=== PATIENT | female | born 1945 | race Caucasian/White ===

== ENCOUNTER 2018-05-16 20:49 | Observation (INO) ==
[2018-05-16] MEDS ORDERED: ONDANSETRON 4 MG/2 ML VIAL IV STA (22:18)
[2018-05-16] MEDS ORDERED: METOPROLOL TARTRATE 5 MG/5 ML VIAL IV STA (22:18)
[2018-05-16 22:44] LABS: Basophils % 0.3 % (0.0-0.8); Eosinophils # 0.2 10*3/uL (0.0-0.87); Eosinophils % 2.1 % (0.00-10.9); Hematocrit 44.1 VOL% (35.7-47.0); Hemoglobin 14.7 GM/DL (12.0-16.0); Immature Granulocytes % 0.4 %; Immature Granulocytes Absolute 0.04 #; Lymphocytes # 1.9 10*3/uL (1.4-4.0); Lymphocytes % 21.8 % (21.3-54.2); Mean Corpuscular HGB Conc 33.3 GM/DL (32-36); Mean Corpuscular Hemoglobin 31 PG (27-34); Mean Corpuscular Volume 92.3 FL (87-102); Mean Platelet Volume 10.4 FL (9.6-12.0); Monocytes # 0.7 10*3/uL (0.11-0.8); Monocytes % 7.9 % (1.7-12.7); Neutrophils % 67.5 % (38.7-73.9); Platelet Count 184 T/CUMM (130-400); Red Blood Count 4.78 MC/CUMM (3.8-5.5); Red Cell Distribution Width 13.6 % (9.3-17.3); White Blood Count 8.9 T/CUMM (4-12)
[2018-05-16 23:07] LABS: Alanine Aminotransferase 55 U/L (13-56); Albumin 3.3 G/DL (3.4-5.0); Alkaline Phosphatase 105 U/L (45-117); Aspartate Amino Transferase 42 U/L (0-37); Blood Urea Nitrogen 29 MG/DL (7-18); Calcium 8.9 MG/DL (8.5-10.1); Glucose 98 MG/DL (74-106); Osmolality,Calculated 286.3 MOS/KG (273-304); Potassium 3.9 MMOL/L (3.5-5.1); Sodium 141 MMOL/L (136-145); Total Protein 7.4 G/DL (6.4-8.3)
[2018-05-17 01:09] LABS: Apearance,Urine CLEAR (Clear); Bilirubin,Urine Negative (Negative); Blood, Urine Negative (Negative); Glucose,Urine (UA) Negative (Negative); Ketones,Urine Negative (Negative); Nitrite,Urine Negative (Negative); Protein,Urine 100 MG/DL; RBC,Urine <1 /HPF (0-4); Urine Color Yellow (Yellow); Urine Urobilinogen < 2.0 EU/DL (0.2-1.0); WBC,Urine 1 /HPF (0-6)
[2018-05-17 01:19] LABS: Barbiturates Screen,Urine Negative (Negative); Benzodiazepines Screen,Urine Negative (Negative); Cannabinoid Screen,Urine Negative (Negative); Opiate Screen,Urine Negative (Negative); Phencyclidine Screen,Urine Negative (Negative)
[2018-05-17] MEDS ORDERED: ACETAMINOPHEN 325 MG TABLET PO PRN (05:09)
[2018-05-17] MEDS ORDERED: hydrALAZINE 25 MG TABLET PO PRN (05:09)
[2018-05-17] MEDS ORDERED: LEVOTHYROXINE 100 MCG TABLET PO SCH (06:00)
[2018-05-17 06:03] LABS: Basophils % 0.4 % (0.0-0.8); Eosinophils # 0.2 10*3/uL (0.0-0.87); Eosinophils % 2.3 % (0.00-10.9); Hematocrit 41.6 VOL% (35.7-47.0); Immature Granulocytes % 0.4 %; Immature Granulocytes Absolute 0.03 #; Lymphocytes # 1.8 10*3/uL (1.4-4.0); Lymphocytes % 21.6 % (21.3-54.2); Mean Corpuscular HGB Conc 33.7 GM/DL (32-36); Mean Corpuscular Hemoglobin 31 PG (27-34); Mean Corpuscular Volume 91.6 FL (87-102); Mean Platelet Volume 10.6 FL (9.6-12.0); Monocytes # 0.6 10*3/uL (0.11-0.8); Monocytes % 7.9 % (1.7-12.7); Neutrophils # 5.5 10*3/uL (1.4-7.4); Neutrophils % 67.4 % (38.7-73.9); Platelet Count 165 T/CUMM (130-400); Red Blood Count 4.54 MC/CUMM (3.8-5.5); Red Cell Distribution Width 13.8 % (9.3-17.3); White Blood Count 8.1 T/CUMM (4-12)
[2018-05-17 06:08] LABS: INR 2.9
[2018-05-17 06:09] LABS: PT Patient Result 29.5 SECS
[2018-05-17 06:15] LABS: Calcium 8.6 MG/DL (8.5-10.1); Osmolality,Calculated 287.3 MOS/KG (273-304)
[2018-05-17] MEDS: AMYLASE PO SCH ×2 (08:49→11:48)
[2018-05-17] MEDS: PROTEASE PO SCH ×2 (08:49→11:48)
[2018-05-17] MEDS: LIPASE PO SCH ×2 (08:49→11:48)
[2018-05-17] MEDS ORDERED: FUROSEMIDE 40 MG TABLET PO SCH (09:00)
[2018-05-17] MEDS ORDERED: NEBIVOLOL 10 MG TABLET PO SCH (09:00)
[2018-05-17] MEDS ORDERED: ASPIRIN EC 81 MG TABLET PO SCH (09:00)
[2018-05-17] MEDS ORDERED: VALSARTAN 160 MG TABLET PO SCH (09:00)
[2018-05-17 12:33] VITALS: BP 178/67
[2018-05-17] MEDS ORDERED: WARFARIN 1 MG TABLET PO SCH (18:00)
== END 2018-05-17 16:44 | disposition home or self-care (01) ==
LOC: N.EDINP 20:49 → N.ED 20:49 → N.EDINP 05-17 04:35 → N.TELEN 05-17 05:01
PROVIDERS: ADMIT Internal Medicine Geriatric Medicine; ATTEND Internal Medicine Geriatric Medicine

== ENCOUNTER 2020-10-13 15:28 | Inpatient (IN) ==
[2020-10-13] MEDS ORDERED: LABETALOL 20 MG/4 ML SYRINGE IV ONE (15:46)
[2020-10-13] MEDS ORDERED: hydrALAZINE 20 MG/1 ML VIAL ONE (15:50)
[2020-10-13 16:11] LABS: Basophils % 0.4 % (0.0-0.8); Eosinophils # 0.1 10*3/uL (0.0-0.87); Hematocrit 41.5 VOL% (35.7-47.0); Hemoglobin 13.6 GM/DL (12.0-16.0); Immature Granulocytes % 0.6 %; Immature Granulocytes Absolute 0.05 #; Lymphocytes # 1.3 10*3/uL (1.4-4.0); Mean Corpuscular HGB Conc 32.8 GM/DL (32-36); Mean Corpuscular Volume 95.8 FL (87-102); Monocytes % 6.9 % (1.7-12.7); Neutrophils % 74.1 % (38.7-73.9); Platelet Count 78 T/CUMM (130-400); Red Blood Count 4.33 MC/CUMM (3.8-5.5); Red Cell Distribution Width 15.8 % (9.3-17.3); White Blood Count 7.8 T/CUMM (4-12)
[2020-10-13 16:23] LABS: Bilirubin,Urine Negative (Negative); Blood, Urine Negative (Negative); Glucose,Urine (UA) Negative (Negative); Hyaline Casts,Urine 1 /LPF (0-3); Ketones,Urine Negative (Negative); Mucus,Urine Occasional /LPF (Occasional); Nitrite,Urine Negative (Negative); Protein,Urine 30 MG/DL; RBC,Urine 1 /HPF (0-4); Squamous Epithelial Cell,Urine Occasional /HPF (0-10); Urine Appearance Slightly Hazy (Clear); Urine Color Straw (Yellow); Urine Specific Gravity 1.008 (1.001-1.035); Urine Urobilinogen < 2.0 EU/DL (0.2-1.0); WBC,Urine 1 /HPF (0-6)
[2020-10-13 16:35] LABS: INR 2.2; PT Patient Result 22.9 SECS (9.8-11.9); Partial Thromboplastin Time 42.2 SECS (23.9-33.8)
[2020-10-13 16:39] LABS: Alanine Aminotransferase 27 U/L (13-56); Albumin 3.5 G/DL (3.4-5.0); Alkaline Phosphatase 141 U/L (45-117); Aspartate Amino Transferase 23 U/L (0-37); Blood Urea Nitrogen 51 MG/DL (7-18); Calcium 8.4 MG/DL (8.5-10.1); Estimated Glom Filtration Rate 25 ML/MIN; Glucose 117 MG/DL (74-106); Osmolality,Calculated 297.1 MOS/KG (273-304); Total Protein 7.3 G/DL (6.4-8.3)
[2020-10-13 17:15] LABS: Barbiturates Screen,Urine Negative (Negative); Benzodiazepines Screen,Urine Negative (Negative); Cannabinoid Screen,Urine Negative (Negative); Opiate Screen,Urine Negative (Negative); Phencyclidine Screen,Urine Negative (Negative)
[2020-10-13] MEDS ORDERED: GLUCAGON 1 MG VIAL IM PRN (17:19)
[2020-10-13] MEDS ORDERED: DEXTROSE 50% 25 GM/50 ML VIAL IV PRN (17:19)
[2020-10-13] MEDS ORDERED: LABETALOL 20 MG/4 ML SYRINGE IV PRN (17:24)
[2020-10-13 17:57] LABS: Risk Ratio 4.23; VLDL CHOLESTEROL 42.4 MG/DL
[2020-10-13] MEDS ORDERED: cloNIDine 0.1 MG TABLET PO SCH (21:00)
[2020-10-13] MEDS: DOXAZOSIN 4 MG TABLET PO SCH (21:38)
[2020-10-13] MEDS: ATORVASTATIN 80 MG TABLET PO SCH (21:38)
[2020-10-13] MEDS: WARFARIN 3 MG TABLET PO SCH (21:38)
[2020-10-13] MEDS: NEBIVOLOL 10 MG TABLET PO SCH (21:43)
[2020-10-13] MEDS: ZONISAMIDE 100 MG CAPSULE PO SCH (21:43)
[2020-10-13] MEDS: SODIUM CHLORIDE 0.9% 1,000 ML IV SCH (23:19)
[2020-10-14 05:52] LABS: Basophils % 0.3 % (0.0-0.8); Eosinophils # 0.1 10*3/uL (0.0-0.87); Hematocrit 38.4 VOL% (35.7-47.0); Hemoglobin 12.4 GM/DL (12.0-16.0); Immature Granulocytes % 0.6 %; Immature Granulocytes Absolute 0.04 #; Lymphocytes # 1.2 10*3/uL (1.4-4.0); Lymphocytes % 18.5 % (21.3-54.2); Mean Corpuscular HGB Conc 32.3 GM/DL (32-36); Mean Corpuscular Volume 96.7 FL (87-102); Mean Platelet Volume 11.6 FL (9.6-12.0); Monocytes % 7.3 % (1.7-12.7); Neutrophils % 72.3 % (38.7-73.9); Platelet Count 93 T/CUMM (130-400); Red Blood Count 3.97 MC/CUMM (3.8-5.5); Red Cell Distribution Width 15.8 % (9.3-17.3); White Blood Count 6.7 T/CUMM (4-12)
[2020-10-14 05:55] LABS: INR 2.2; PT Patient Result 22.3 SECS (9.8-11.9)
[2020-10-14 06:14] LABS: Calcium 8.2 MG/DL (8.5-10.1); Hypochromasia 1+; Osmolality,Calculated 286.7 MOS/KG (273-304); Platelet Estimate Decreased
[2020-10-14] MEDS: LEVOTHYROXINE 75 MCG TABLET PO SCH (07:21)
[2020-10-14] MEDS ORDERED: FUROSEMIDE 80 MG TABLET PO SCH (09:00)
[2020-10-14] MEDS ORDERED: LOSARTAN 50 MG TABLET PO SCH (09:00)
[2020-10-14] MEDS: PANTOPRAZOLE 40 MG TABLET PO SCH (09:49)
[2020-10-14] MEDS: NEBIVOLOL 10 MG TABLET PO SCH ×2 (09:49→21:34)
[2020-10-14] MEDS: ASPIRIN EC 81 MG TABLET PO SCH (09:49)
[2020-10-14] MEDS: allopurinoL 100 MG TABLET PO SCH (09:49)
[2020-10-14] MEDS: SODIUM CHLORIDE 0.9% 1,000 ML IV SCH ×2 (09:50)
[2020-10-14] MEDS: cefTRIAXone 1,000 MG in SYRINGE 1 EACH IV SCH (12:44)
[2020-10-14] MEDS: HEPARIN DRIP 25,000 UNITS/500 ML PREMIX IV SCH (14:30)
[2020-10-14] MEDS: WARFARIN 3 MG TABLET PO SCH (17:05)
[2020-10-14] MEDS: DOXAZOSIN 4 MG TABLET PO SCH (21:34)
[2020-10-14] MEDS: ATORVASTATIN 80 MG TABLET PO SCH (21:35)
[2020-10-14] MEDS: ZONISAMIDE 100 MG CAPSULE PO SCH (21:35)
[2020-10-15] MEDS: LEVOTHYROXINE 88 MCG TABLET PO SCH (05:48)
[2020-10-15 09:15] LABS: INR 2.9; PT Patient Result 29.3 SECS (9.8-11.9)
[2020-10-15] MEDS: NEBIVOLOL 10 MG TABLET PO SCH ×2 (09:29→20:34)
[2020-10-15] MEDS: ASPIRIN EC 81 MG TABLET PO SCH (09:29)
[2020-10-15] MEDS: allopurinoL 100 MG TABLET PO SCH (09:29)
[2020-10-15] MEDS: PANTOPRAZOLE 40 MG TABLET PO SCH (09:29)
[2020-10-15] MEDS: ONDANSETRON 4 MG/2 ML VIAL IV PRN ×2 (10:54→19:51)
[2020-10-15] MEDS: cefTRIAXone 1,000 MG in SYRINGE 1 EACH IV SCH (10:54)
[2020-10-15] MEDS: DIGOXIN 0.125 MG TABLET PO SCH (14:16)
[2020-10-15] MEDS: NYSTATIN POWDER 15 GM BOTTLE TOP SCH ×2 (16:43→20:35)
[2020-10-15] MEDS: HEPARIN DRIP 25,000 UNITS/500 ML PREMIX IV SCH (17:37)
[2020-10-15] MEDS: WARFARIN 3 MG TABLET PO SCH (18:01)
[2020-10-15] MEDS: DOXAZOSIN 4 MG TABLET PO SCH (20:34)
[2020-10-15] MEDS: ZONISAMIDE 100 MG CAPSULE PO SCH (20:34)
[2020-10-15] MEDS: ATORVASTATIN 80 MG TABLET PO SCH (20:35)
[2020-10-16] MEDS: ACETAMINOPHEN 325 MG TABLET PO PRN (04:50)
[2020-10-16 06:12] LABS: INR 3.2; PT Patient Result 32.2 SECS (9.8-11.9)
[2020-10-16] MEDS: LEVOTHYROXINE 75 MCG TABLET PO SCH (06:24)
[2020-10-16] MEDS: allopurinoL 100 MG TABLET PO SCH (09:14)
[2020-10-16] MEDS: ASPIRIN EC 325 MG TABLET PO SCH (09:14)
[2020-10-16] MEDS: PANTOPRAZOLE 40 MG TABLET PO SCH (09:14)
[2020-10-16] MEDS: NYSTATIN POWDER 15 GM BOTTLE TOP SCH ×2 (09:14→20:34)
[2020-10-16] MEDS: NEBIVOLOL 10 MG TABLET PO SCH ×2 (09:14→20:34)
[2020-10-16] MEDS: ONDANSETRON 4 MG/2 ML VIAL IV PRN ×2 (09:15→20:38)
[2020-10-16] MEDS: cefTRIAXone 1,000 MG in SYRINGE 1 EACH IV SCH (11:11)
[2020-10-16] MEDS: WARFARIN 3 MG TABLET PO SCH (17:35)
[2020-10-16] MEDS: ZONISAMIDE 100 MG CAPSULE PO SCH (20:34)
[2020-10-16] MEDS: DOXAZOSIN 4 MG TABLET PO SCH (20:35)
[2020-10-16] MEDS: ATORVASTATIN 80 MG TABLET PO SCH (20:35)
[2020-10-17] MEDS: ACETAMINOPHEN 325 MG TABLET PO PRN (06:18)
[2020-10-17] MEDS: LEVOTHYROXINE 88 MCG TABLET PO SCH (06:18)
[2020-10-17 06:49] LABS: INR 3.4; PT Patient Result 34.4 SECS (9.8-11.9)
[2020-10-17] MEDS: ASPIRIN EC 325 MG TABLET PO SCH (10:11)
[2020-10-17] MEDS: NEBIVOLOL 10 MG TABLET PO SCH ×2 (10:11→22:23)
[2020-10-17] MEDS: allopurinoL 100 MG TABLET PO SCH (10:12)
[2020-10-17] MEDS: NYSTATIN POWDER 15 GM BOTTLE TOP SCH ×2 (10:12→22:28)
[2020-10-17] MEDS: PANTOPRAZOLE 40 MG TABLET PO SCH (10:12)
[2020-10-17] MEDS: cefTRIAXone 1,000 MG in SYRINGE 1 EACH IV SCH (12:20)
[2020-10-17] MEDS: DIGOXIN 0.125 MG TABLET PO SCH (12:56)
[2020-10-17] MEDS: amLODIPine 5 MG TABLET PO SCH (14:47)
[2020-10-17] MEDS: WARFARIN 3 MG TABLET PO SCH (18:02)
[2020-10-17] MEDS: DOXAZOSIN 4 MG TABLET PO SCH (22:27)
[2020-10-17] MEDS: ZONISAMIDE 100 MG CAPSULE PO SCH (22:27)
[2020-10-17] MEDS: ATORVASTATIN 80 MG TABLET PO SCH (22:27)
[2020-10-17] MEDS: ONDANSETRON 4 MG/2 ML VIAL IV PRN (22:44)
[2020-10-18] MEDS: ACETAMINOPHEN 325 MG TABLET PO PRN (02:09)
[2020-10-18] MEDS: LEVOTHYROXINE 75 MCG TABLET PO SCH (06:05)
[2020-10-18 06:21] LABS: INR 3.7; PT Patient Result 37.1 SECS (9.8-11.9)
[2020-10-18] MEDS: NEBIVOLOL 10 MG TABLET PO SCH ×2 (09:30→21:20)
[2020-10-18] MEDS: allopurinoL 100 MG TABLET PO SCH (09:30)
[2020-10-18] MEDS: PANTOPRAZOLE 40 MG TABLET PO SCH (09:30)
[2020-10-18] MEDS: ASPIRIN EC 325 MG TABLET PO SCH (09:30)
[2020-10-18] MEDS: amLODIPine 5 MG TABLET PO SCH (09:30)
[2020-10-18] MEDS: NYSTATIN POWDER 15 GM BOTTLE TOP SCH ×2 (09:31→21:16)
[2020-10-18] MEDS: cefTRIAXone 1,000 MG in SYRINGE 1 EACH IV SCH (14:18)
[2020-10-18] MEDS: WARFARIN 3 MG TABLET PO SCH (18:07)
[2020-10-18] MEDS: MELATONIN 3 MG TABLET PO SCH (21:15)
[2020-10-18] MEDS: ATORVASTATIN 80 MG TABLET PO SCH (21:15)
[2020-10-18] MEDS: DOXAZOSIN 4 MG TABLET PO SCH (21:15)
[2020-10-18] MEDS: ZALEPLON 5 MG CAPSULE PO SCH (21:15)
[2020-10-18] MEDS: ZONISAMIDE 100 MG CAPSULE PO SCH (21:28)
[2020-10-19] MEDS: ACETAMINOPHEN 325 MG TABLET PO PRN (04:12)
[2020-10-19] MEDS: LEVOTHYROXINE 75 MCG TABLET PO SCH (05:34)
[2020-10-19 07:30] LABS: INR 4.2; PT Patient Result 41.5 SECS (9.8-11.9)
[2020-10-19] MEDS ORDERED: CYCLOBENZAPRINE 10 MG TABLET PO PRN (08:29)
[2020-10-19] MEDS: ASPIRIN EC 325 MG TABLET PO SCH (09:09)
[2020-10-19] MEDS: NEBIVOLOL 10 MG TABLET PO SCH ×2 (09:09→21:23)
[2020-10-19] MEDS: FUROSEMIDE 40 MG TABLET PO SCH (09:09)
[2020-10-19] MEDS: LIDOCAINE 5% PATCH TRANSDERM SCH (09:10)
[2020-10-19] MEDS: amLODIPine 5 MG TABLET PO SCH (09:10)
[2020-10-19] MEDS: PANTOPRAZOLE 40 MG TABLET PO SCH (09:11)
[2020-10-19] MEDS: allopurinoL 100 MG TABLET PO SCH (09:11)
[2020-10-19] MEDS: NYSTATIN POWDER 15 GM BOTTLE TOP SCH ×2 (09:11→21:25)
[2020-10-19] MEDS: cefTRIAXone 1,000 MG in SYRINGE 1 EACH IV SCH (11:35)
[2020-10-19] MEDS ORDERED: WARFARIN 1 MG TABLET PO SCH (18:00)
[2020-10-19] MEDS: MELATONIN 3 MG TABLET PO SCH (21:23)
[2020-10-19] MEDS: ZALEPLON 5 MG CAPSULE PO SCH (21:23)
[2020-10-19] MEDS: ZONISAMIDE 100 MG CAPSULE PO SCH (21:24)
[2020-10-19] MEDS: DOXAZOSIN 4 MG TABLET PO SCH (21:24)
[2020-10-19] MEDS: ATORVASTATIN 80 MG TABLET PO SCH (21:25)
[2020-10-20] MEDS: LEVOTHYROXINE 88 MCG TABLET PO SCH (06:40)
[2020-10-20] MEDS: allopurinoL 100 MG TABLET PO SCH (08:55)
[2020-10-20] MEDS: ASPIRIN EC 325 MG TABLET PO SCH (08:55)
[2020-10-20] MEDS: PANTOPRAZOLE 40 MG TABLET PO SCH (08:55)
[2020-10-20] MEDS: amLODIPine 5 MG TABLET PO SCH (08:55)
[2020-10-20] MEDS: NEBIVOLOL 10 MG TABLET PO SCH (08:55)
[2020-10-20] MEDS: FUROSEMIDE 40 MG TABLET PO SCH (08:56)
[2020-10-20] MEDS: NYSTATIN POWDER 15 GM BOTTLE TOP SCH (08:56)
[2020-10-20] MEDS: LIDOCAINE 5% PATCH TRANSDERM SCH (08:56)
[2020-10-20 09:02] LABS: INR 3.7; PT Patient Result 37.1 SECS (9.8-11.9)
[2020-10-20] MEDS: cefTRIAXone 1,000 MG in SYRINGE 1 EACH IV SCH (10:31)
[2020-10-20 11:29] VITALS: BP 148/88
== END 2020-10-20 11:38 | DRG 64 ==
LOC: EDBD → EDUNIT# → N.ED 15:28 → N.EDINP 15:28 → N.3E 19:05 → SUATTDRO 10-14 14:34
PROVIDERS: ADMIT Internal Medicine; ATTEND Internal Medicine